=== PATIENT | female | born 1970 | race Caucasian/White ===

== ENCOUNTER 2017-12-11 11:12 | Emergency (ER) | payer SELFPAY ==
[2017-12-11 11:13] VITALS: BP 140/82; PULSE 72; RESP 16; TEMP 97.8; O2SAT 98
--- NOTE | 2017-12-11 11:50 | PD ---
HPI Chief Complaint: Musculoskeletal Complaint Time Seen by Provider: 11:47 Travel History International Travel<30 days: No Contact w/Intl Traveler<30days: No Traveled to known affect area: No History of Present Illness HPI 47-year-old female who reports that she return arthritis presents for evaluation of right elbow and shoulder pain. It started when he week ago. The pain is an aching pain which is worse with movement. She denies any injuries. She reports that she has had similar pain multiple times in the past and she relates it to her history of rheumatoid arthritis. She reports that the past glucocorticoid treatment has been helpful. She reports that she recently moved here from [place] and does not have a primary care physician and for this reason she came to the emergency room today. She has no other complaints at this time. History Past Medical Histgory Narrative Medical History of rheumatoid arthritis Social History Alcohol Use: No Tobacco Use: No Allergies-Medications (Allergen,Severity, Reaction): Coded Allergies: No Known Allergies (Unverified , 12/11/17) Review of Systems General / Constitutional: No: Fever, Chills Musculoskeletal: Positive: Pain, Other (denies any injuries), No: Edema Skin: Positive Other (denies any open wounds) Physical Exam Narrative GENERAL: Well-developed well-nourished female in no acute distress SKIN: Warm and dry. HEAD: Atraumatic. Normocephalic. EYES: Pupils equal and round. No scleral icterus. No injection or drainage. ENT: No nasal bleeding or discharge. Mucous membranes pink and moist. NECK: Trachea midline. No JVD. CARDIOVASCULAR: Regular rate and rhythm. No murmur appreciated. RESPIRATORY: No accessory muscle use. Clear to auscultation. Breath sounds equal bilaterally. MUSCULOSKELETAL: No obvious deformities. The patient maintains full range of motion of the upper extremities. There is no joint effusion. There is no reproducible tenderness to palpation to the arms or neck. Distal sensation is preserved in the median, radial and ulnar nerve distributions. 2+ radial pulse bilaterally. There is no edema. NEUROLOGICAL: Awake and alert. No obvious cranial nerve deficits. Motor grossly within normal limits. Normal speech. Data Data Last Documented VS Vital Signs Date Time Temp Pulse Resp B/P (MAP) Pulse Ox O2 Delivery O2 Flow Rate FiO2 12/11/17 11:13 97.8 72 16 140/82 (101) 98 MDM Medical Screen Exam Complete: Yes Emergency Medical Condition: No Narrative Course Physical examination is unremarkable. This appears to be a nonemergent issue that can be reasonably followed up for as an outpatient. A medical screening exam was performed: At the time of evaluation the presenting medical condition was determined not to be of an emergent nature. The patient was given the option of receiving additional care, but declined. Patient was given options for additional community resources from which to obtain care. The Patient Has Been advised to seek medical attention for their presenting complaint. The patient has been advised to return to the ER at any time if an emergent condition develops. Primary Impression: Encounter for medical screening examination Aden Doyle Dec 11, 2017 11:50
== END 2017-12-11 11:52 | disposition left against medical advice (07) ==
LOC: NEPK 11:12
DX: M25.511 Pain in right shoulder (principal); M06.9 Rheumatoid arthritis, unspecified
CPT/HCPCS: 99281

== ENCOUNTER 2018-02-22 15:34 | Emergency (ER) | payer MEDICARE, MEDICAID ==
[2018-02-22 15:36] VITALS: BP 132/74; PULSE 69; RESP 16; TEMP 97.9; O2SAT 100
--- NOTE | 2018-02-22 15:58 | RADRPT ---
EXAM DATE/TIME: 02/22/2018 15:48 [facility] COMPARISON: No previous studies available for comparison. INDICATIONS : Pt states no known trauma to hand, pain for 2 days (second metacarpal) with swelling and bruising. MEDICAL HISTORY : None. SURGICAL HISTORY : None. ENCOUNTER: Initial ACUITY: 2 days PAIN SCORE: 10/10 LOCATION: Left upper extremity Hand FINDINGS: Three view examination of the left hand demonstrates no soft tissue swelling, dislocation, or fractur e. The carpal bones appear intact. The interphalangeal and metacarpophalangeal joints are intact. Bony mineralization is normal. CONCLUSION: Negative exam. Marco Antonio Estrella MD on February 22, 2018 at 15:55 Board Certified Radiologist. This report was verified electronically.
[2018-02-22 16:08] VITALS: BP 131/80; PULSE 71; RESP 15; TEMP 98; O2SAT 98
[2018-02-22] MEDS ORDERED: IBUPROFEN 800 MG TAB PO ONE (16:15)
[2018-02-22] MEDS ORDERED: ZOLO100T PO (16:17)
[2018-02-22] MEDS ORDERED: XANA1TAB2 PO (16:17)
[2018-02-22] MEDS ORDERED: IBUP-232 PO (16:21)
--- NOTE | 2018-02-22 16:21 | PD ---
HPI Chief Complaint: Pain: Acute or Chronic Time Seen by Provider: 16:05 Travel History International Travel<30 days: No Contact w/Intl Traveler<30days: No Traveled to known affect area: No History of Present Illness HPI The patient is a 47-year-old female who presents to the emergency department for left hand pain. The patient notes a 2-3 day history of left hand pain that is mostly located over the metacarpal phalangeal joint of the second and third digit. The patient does note mild swelling of the affected area, pain with range of motion, and minimal relief at rest. The pain is worse when she flexes the second and third digit of the left hand. The patient is right-hand dominant. The patient cannot recall any trauma to the affected area denies any redness over the affected area. She does note it is tender to palpation. She denies any history of IV drug use, gout, or pseudogout. Symptoms are moderate. The patient denies any fever, chills, or sweats. The patient does not have a local primary physician, recently moved to the area from [place]. PFSH Past Medical History Diminished Hearing: No Tetanus Vaccination: < 5 Years Influenza Vaccination: Yes ?: Not Past Surgical History Section: Yes () Hysterectomy: Yes (2000) Social History Alcohol Use: Yes (ocacionally) Tobacco Use: No Substance Use: No Allergies-Medications (Allergen,Severity, Reaction): Coded Allergies: No Known Allergies (Unverified , 12/11/17) Review of Systems Except as stated in HPI: all other systems reviewed are Neg General / Constitutional: No: Fever Cardiovascular: No: Chest Pain or Discomfort Respiratory: No: Shortness of Breath Gastrointestinal: No: Nausea, Vomiting, Abdominal Pain Musculoskeletal: Positive: Edema, Pain Skin: No Rash Neurologic: No: Paresthesia, Sensory Disturbance Physical Exam Narrative GENERAL: Awake, alert, nontoxic-appearing 47-year-old female who appears her stated age and is in no acute respiratory distress. SKIN: Focused skin assessment warm/dry. HEAD: Atraumatic. Normocephalic. EYES: No injection or drainage. ENT: No nasal bleeding or discharge. Mucous membranes pink and moist. NECK: Trachea midline. No JVD. MUSCULOSKELETAL: The left hand has mild edema over the second and third metacarpal phalangeal joint and on the dorsal aspect of the left hand has mild swelling and tenderness. No erythema or visible puncture wounds. The patient is able to flex at the MCP, PIP, DIP of the second and third digit but limited range of motion secondary to pain. No tenderness with passive range of motion or extension of the second and third digit. Positive left radial pulse. The patient is able to oppose the thumb to the second and third digit. Patient is able to fully flex and extend the left wrist as well as supinate and pronate the left wrist. NEUROLOGICAL: Awake and alert. No obvious cranial nerve deficits. Motor grossly within normal limits. Normal speech. Sensation was intact on the radial , median, and ulnar distribution of the left hand. PSYCHIATRIC: Appropriate mood and affect; insight and judgment normal. Data Data Last Documented VS Vital Signs Date Time Temp Pulse Resp B/P (MAP) Pulse Ox O2 Delivery O2 Flow Rate FiO2 02/22/18 16:08 67 15 02/22/18 16:08 98.0 131/80 (97) 98 Room Air Orders Orders Hand, Complete ([id number]) (02/22/18 ) Ibuprofen (Motrin) (02/22/18 16:15) MDM Medical Decision Making Medical Screen Exam Complete: Yes Emergency Medical Condition: Yes Medical Record Reviewed: Yes Differential Diagnosis Differential diagnosis includes fracture, contusion, dislocation, hematoma, foreign body, arthropathy, flexor tenosynovitis, tendinitis, septic joint. Narrative Course The patient is currently afebrile, there is no surrounding erythema, there is mild edema. She cannot recall trauma and x-ray reveals no fracture. The patient does have some calcification over the anterior aspect of the second MCP , I do not visualize a donation spot, do not believe this is an acute fracture. The patient may have underlying arthropathy, I do not believe this is flexor tenosynovitis. 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 The patient will be discharged home in ibuprofen as needed for pain. She is advised to ice the affected area. Follow-up with hand surgery as needed. Diagnosis Primary Impression: Left hand pain Patient Instructions: General Instructions Additional Instructions: Ibuprofen as directed. Ice the affected area. Follow-up with hand surgery as needed. Monitor for signs of infection including erythema and fever. Med/Other Pt SpecificInfo: Prescription(s) given Scripts Ibuprofen (Ibuprofen) 600 Mg Tab 600 MG PO Q6H Y for Pain/Inflammation, #20 TAB 0 Refills Prov: Brendon Arana MD 02/22/18 Disposition: 01 DISCHARGE HOME Condition: Stable Brendon Arana MD February 22, 2018 16:21
[2018-02-22 16:34] VITALS: BP 132/72; TEMP 98.1
== END 2018-02-22 16:37 | disposition home or self-care (01) ==
LOC: NEPE 15:34
DX: M79.642 Pain in left hand (principal)
CPT/HCPCS: 73130; 99283

== ENCOUNTER 2018-03-14 09:43 | Emergency (ER) | payer MEDICARE, MEDICAID ==
[~2018-03-14 09:43] MED LIST: IBUP-232 PO; XANA1TAB2 PO; ZOLO100T PO
[2018-03-14 09:49] VITALS: BP 115/67; PULSE 79; RESP 14; TEMP 98.7; O2SAT 99
--- NOTE | 2018-03-14 11:02 | PD ---
HPI Chief Complaint: Injury Time Seen by Provider: 10:34 Travel History International Travel<30 days: No Contact w/Intl Traveler<30days: No Traveled to known affect area: No History of Present Illness HPI 47-year-old female presents emergency department with complaints of neck pain status post fall while painting 4 days ago. She states she is able to look down but has pain when looking up or to the side. She also is complaining of generalized body aches and sore throat for the past 2 days. She denies fever, chills, significant sinus headache or postnasal drip. No cough or shortness of breath. No nausea vomiting or diarrhea. Patient denies pain in the upper extremities or radicular symptoms. She denies headache or loss of consciousness. She has no known drug allergies PFSH Past Medical History Diminished Hearing: No Past Surgical History Section: Yes () Hysterectomy: Yes (2000) Social History Alcohol Use: Yes (ocacionally) Tobacco Use: No Substance Use: No Allergies-Medications (Allergen,Severity, Reaction): Coded Allergies: No Known Allergies (Unverified , 02/22/18) Reported Meds & Prescriptions Reported Meds & Active Scripts Active Ibuprofen 600 Mg Tab 600 Mg PO Q6H PRN Reported Zoloft (Sertraline HCl) 100 Mg Tab 100 Mg PO DAILY Xanax (Alprazolam) 1 Mg Tab 1 Mg PO Q6H PRN Review of Systems Except as stated in HPI: all other systems reviewed are Neg General / Constitutional: No: Fever Eyes: No: Visual changes HENT: Positive: Sore Throat, No: Headaches, Vertigo, Lightheadedness, Rhinitis , Rhinorrhea, Congestion, Nosebleed, Neck Stiffness, Neck Pain, Dental Difficulties, Earache Cardiovascular: No: Chest Pain or Discomfort Respiratory: No: Shortness of Breath Gastrointestinal: No: Abdominal Pain Genitourinary: No: Dysuria Musculoskeletal: Positive: Arthralgias, Limited ROM, Pain Skin: No Rash Neurologic: No: Weakness Psychiatric: No: Depression Endocrine: No: Polydipsia Hematologic/Lymphatic: No: Easy Bruising Physical Exam Narrative GENERAL: Patient appears in no acute distress. SKIN: Warm and dry. Normal color. Normal turgor. No signs of trauma HEAD: Atraumatic. Normocephalic. Nontender. EYES: Pupils equal and round. No scleral icterus. No injection or drainage. ENT: No nasal bleeding or discharge. Mucous membranes pink and moist. TMs are clear bilaterally. Posterior pharynx appears unremarkable without erythema or exudate. No significant swelling. Uvula is midline. NECK: Trachea midline. Patient has mild tenderness with palpation to the upper central spine without obvious step-off. Range of motion is mildly limited secondary to discomfort. CT scan is performed. CARDIOVASCULAR: Regular rate and rhythm. RESPIRATORY: No accessory muscle use. Clear to auscultation. Breath sounds equal bilaterally. GASTROINTESTINAL: Abdomen soft, non-tender, nondistended. Hepatic and splenic margins not palpable. MUSCULOSKELETAL: Extremities without clubbing, cyanosis, or edema. No obvious deformities. NEUROLOGICAL: Awake and alert. No obvious cranial nerve deficits. Motor grossly within normal limits. Five out of 5 muscle strength in the arms and legs. Normal speech. PSYCHIATRIC: Appropriate mood and affect; insight and judgment normal. Data Data Last Documented VS Vital Signs Date Time Temp Pulse Resp B/P (MAP) Pulse Ox O2 Delivery O2 Flow Rate FiO2 03/14/18 09:49 98.7 79 14 115/67 (83) [address] Cerv Spine W/O Contrast (03/14/18 10:57) [facility] Medical Decision Making Medical Screen Exam Complete: Yes Emergency Medical Condition: Yes Differential Diagnosis Slip and fall. Neck strain. Cervical strain. Possible fracture. Sore throat Narrative Course Patient appears medically stable at time of exam. CT of the neck is ordered. The patient elected to leave AMA [address]. Diagnosis Primary Impression: Patient left before treatment completed Disposition: 07 AGAINST MEDICAL ADVICE Condition: Stable Blane Cornelius March 14, 2018 11:02
== END 2018-03-14 13:41 | disposition left against medical advice (07) ==
LOC: NEPD 09:43
DX: M54.2 Cervicalgia (principal)
CPT/HCPCS: 99281